=== PATIENT | female | born 1965 | race Two or more races ===

== ENCOUNTER 2017-10-03 06:00 | Day surgery (SDC) | payer OTHER | END 2017-10-03 11:15 | disposition home or self-care (01) | LOC: AMB-ENDOS 06:00 | DX: D12.0 Benign neoplasm of cecum (principal); K64.8 Other hemorrhoids ==

== ENCOUNTER → 2018-06-19 | Day surgery (SDC) | payer OTHER | END | disposition home or self-care (01) | LOC: ADM 06-14 14:15 → AMB-ENDOS 05:30 | DX: K63.5 Polyp of colon (principal) ==

== ENCOUNTER 2019-08-18 06:00 | Day surgery (SDC) | payer OTHER | END 2019-08-18 10:55 | disposition home or self-care (01) | LOC: AMB-ENDOS 06:00 | DX: K62.89 Other specified diseases of anus and rectum (principal); K57.30 Diverticulosis of large intestine without perforation or abscess without bleeding; K64.8 Other hemorrhoids; Z12.11 Encounter for screening for malignant neoplasm of colon ==

== ENCOUNTER 2022-10-04 05:50 | Day surgery (SDC) | payer OTHER | END 2022-10-04 11:10 | disposition home or self-care (01) | LOC: AMB-ENDOS 05:50 | PROVIDERS: ATTEND Colon & Rectal Surgery | DX: R10.11 Right upper quadrant pain (principal); K64.8 Other hemorrhoids; K59.09 Other constipation; K62.5 Hemorrhage of anus and rectum; E66.09 Other obesity due to excess calories; Z20.822 Contact with and (suspected) exposure to COVID-19; I10 Essential (primary) hypertension; Z88.6 Allergy status to analgesic agent ==